=== PATIENT | female | born 1980 | race Caucasian/White ===

== ENCOUNTER → 2017-10-25 | Outpatient (REF) | payer OTHER | LOC: M SFHCLERA 19:02 | DX: Z20.818 Contact with and (suspected) exposure to other bacterial communicable diseases (principal) ==

== ENCOUNTER 2018-06-03 20:41 | Emergency (ER) | payer OTHER ==
[2018-06-03] MEDS: IBUPROFEN 600 MG TAB PO (21:12)
== END 2018-06-03 21:13 | disposition home or self-care (01) ==
LOC: M ED 20:41
DX: H92.01 Otalgia, right ear (principal); T70.29XA Other effects of high altitude, initial encounter; X58.XXXA Exposure to other specified factors, initial encounter; Y92.89 Other specified places as the place of occurrence of the external cause
CPT/HCPCS: 99282

== ENCOUNTER → 2018-11-03 | Outpatient (REF) | payer OTHER ==
[~2018-11-03] MED LIST: IBUP-1022 PO
== END ==
LOC: M SFHCLERA 17:49
PROVIDERS: ATTEND Physician Assistant
DX: R50.9 Fever, unspecified (principal)

== ENCOUNTER → 2018-12-27 | Outpatient (CLI) | payer OTHER ==
--- NOTE | 2018-12-27 18:04 | REP ---
PA and lateral chest: There are no comparisons. The lung fierro are clear. The cardiac size is normal. The nicole, mediastinum, and skeletal structures are unremarkable. Impression: Negative PA and lateral chest. Electronically Signed by Shawn Hall MD 12/27/2018 05:55 P
== END ==
LOC: M LRY 17:00
PROVIDERS: ATTEND Physician Assistant
DX: R05 Cough (principal)

== ENCOUNTER 2019-01-03 13:26 | Emergency (ER) | payer OTHER ==
[~2019-01-03] VITALS: Ht 160 cm; Wt 87.2 kg
[2019-01-03 13:26] VITALS: BP 134/81
[2019-01-03] MEDS ORDERED: ALBU17IN2 INH (14:59)
[2019-01-03] MEDS ORDERED: ZITH500T PO (14:59)
[2019-01-03] MEDS ORDERED: AZITHROMYCIN 250 MG TAB PO ONE (15:00)
[2019-01-03] MEDS ORDERED: ROBI1LIQ9 PO (15:01)
--- NOTE | 2019-01-03 15:12 | REP ---
Chest two views HISTORY: Cough Comparison: 12/27/2018 The lungs are clear. The heart is normal in size. The pulmonary vasculature is normal in appearance. The bony structure is intact. IMPRESSION: No acute disease. Electronically Signed by Douglas Perez MD 01/03/2019 03:04 P
== END 2019-01-03 15:34 | disposition home or self-care (01) ==
LOC: M ED 13:26
DX: J20.9 Acute bronchitis, unspecified (principal); J30.81 Allergic rhinitis due to animal (cat) (dog) hair and dander

== ENCOUNTER 2019-10-25 20:29 | Emergency (ER) | payer OTHER, SELFPAY ==
[~2019-10-25] VITALS: Ht 160 cm; Wt 72.7 kg
[~2019-10-25 20:29] MED LIST changes: +PROV108A INH; +ROBI1LIQ9 PO; +ZITH500T PO
[2019-10-25 20:30] VITALS: BP 133/75
== END 2019-10-25 20:56 | disposition left against medical advice (07) ==
LOC: M ED 20:29
DX: Z53.21 Procedure and treatment not carried out due to patient leaving prior to being seen by health care provider (principal)

== ENCOUNTER 2020-07-23 11:09 | Emergency (ER) | payer OTHER, SELFPAY ==
[~2020-07-23] VITALS: Ht 157.5 cm; Wt 84.6 kg
[2020-07-23] MEDS ORDERED: ACET-907 PO (11:15)
[2020-07-23 12:40] VITALS: BP 121/75
== END 2020-07-23 12:41 | disposition home or self-care (01) ==
LOC: M ED 11:09
DX: J06.9 Acute upper respiratory infection, unspecified (principal); B34.9 Viral infection, unspecified; H92.03 Otalgia, bilateral; R09.81 Nasal congestion

== ENCOUNTER 2020-08-22 01:30 | Emergency (ER) | payer OTHER ==
[~2020-08-22] VITALS: Ht 162.6 cm; Wt 84.9 kg
[2020-08-22 01:30] VITALS: BP 143/95
[~2020-08-22 01:30] MED LIST changes: +ACET-907 PO
== END 2020-08-22 02:12 | disposition home or self-care (01) ==
LOC: M ED 01:30
DX: S00.83XA Contusion of other part of head, initial encounter (principal); W19.XXXA Unspecified fall, initial encounter; Y92.89 Other specified places as the place of occurrence of the external cause; Y93.9 Activity, unspecified; Y99.0 Civilian activity done for income or pay

== ENCOUNTER 2023-02-26 19:18 | Emergency (ER) | payer OTHER ==
[~2023-02-26] VITALS: Ht 157.5 cm; Wt 86.6 kg
[~2023-02-26 19:18] MED LIST changes: +ALBU6.7H6 INH; -PROV108A INH
[2023-02-26 19:19] VITALS: BP 165/95; TEMP 98; O2SAT 98
[2023-02-26] MEDS ORDERED: NAPR-837 PO (21:09)
[2023-02-26] MEDS ORDERED: KETOROLAC 60MG 2ML VIAL IM ONE (21:10)
== END 2023-02-26 21:48 | disposition home or self-care (01) ==
LOC: M ED 19:18
DX: M17.12 Unilateral primary osteoarthritis, left knee (principal); E66.9 Obesity, unspecified; J30.81 Allergic rhinitis due to animal (cat) (dog) hair and dander
CPT/HCPCS: 73564; 96372; 99283; J1885

== ENCOUNTER → 2023-03-31 | Outpatient (CLI) | payer OTHER ==
[~2023-03-31] MED LIST changes: +NAPR-837 PO
== END ==
LOC: M SOG 13:43
PROVIDERS: ATTEND Student in an Organized Health Care Education/Training Program
DX: M17.12 Unilateral primary osteoarthritis, left knee (principal); M25.562 Pain in left knee

== ENCOUNTER → 2023-07-09 | Outpatient (CLI) | payer OTHER ==
[2023-07-09 09:10] LABS: HEMATOCRIT 37.1 % (36.0-47.0); HEMOGLOBIN 12.8 g/dl (12.0-15.5); MEAN CORPUSCULAR HEMOGLOBIN 31.3 pg (27.0-33.0); MEAN CORPUSCULAR HGB CONC 34.5 g/dl (32.0-36.5); MEAN CORPUSCULAR VOLUME 90.7 fl (80.0-96.0); PLATELET COUNT, AUTOMATED 341 10^3/uL (150-450); RED BLOOD COUNT 4.09 10^6/uL (4.00-5.40); WHITE BLOOD COUNT 8.5 10^3/uL (4.0-10.0)
[2023-07-12 16:03] LABS: AST/SGOT 13 IU/L (0-40); BLOOD UREA NITROGEN 11 MG/DL (8-27); CARBON DIOXIDE LEVEL 22 mmol/L (20-29); CHLORIDE LEVEL 107 mmol/L (96-106); CREATININE FOR GFR 0.63 MG/DL (0.57-1.00); GLOMERULAR FILTRATION RATE > 60.0 (>59); POTASSIUM SERUM 4.1 mmol/L (3.5-5.2); SODIUM LEVEL 141 mmol/L (134-144)
[2023-07-12 16:04] LABS: ALBUMIN 3.8 G/DL (3.9-4.9); ALKALINE PHOSPHATASE 92 IU/L (44-121); ALT/SGPT 14 IU/L (0-32); BILIRUBIN,TOTAL 0.4 MG/DL (0.0-1.2); CHOLESTEROL LEVEL 190 MG/DL (100-199); CHOLESTEROL RISK RATIO 3.584 (<5); HDL CHOLESTEROL 53 MG/DL (>39); LDL CHOLESTEROL 121.4 MG/DL (<100); NON-HDL-C 137 MG/DL; TOTAL 25(OH) VITAMIN D 15.4 NG/ML (30-100); TOTAL PROTEIN 6.4 G/DL (6.0-8.5); TRIGLYCERIDES LEVEL 78 MG/DL (0-149)
[2023-07-12 16:05] LABS: GLUCOSE, FASTING 96 MG/DL (70-99)
== END ==
LOC: M LAB 08:11
PROVIDERS: ATTEND Nurse Practitioner Family
DX: Z13.220 Encounter for screening for lipoid disorders (principal); E66.9 Obesity, unspecified

== ENCOUNTER 2023-07-18 02:26 | Emergency (ER) | payer OTHER ==
[~2023-07-18] VITALS: Ht 160 cm; Wt 84.5 kg
[2023-07-18] MEDS ORDERED: FLON1SPR NARES (06:39)
[2023-07-18] MEDS ORDERED: BENZ200C70 PO (06:39)
[2023-07-18 06:55] VITALS: BP 124/88; TEMP 97.8; O2SAT 100
== END 2023-07-18 07:05 | disposition home or self-care (01) ==
LOC: M ED 02:26
DX: J06.9 Acute upper respiratory infection, unspecified (principal); Z91.048 Other nonmedicinal substance allergy status; Z79.1 Long term (current) use of non-steroidal anti-inflammatories (NSAID); Z79.811 Long term (current) use of aromatase inhibitors; Z79.899 Other long term (current) drug therapy

== ENCOUNTER 2023-07-22 16:40 | Emergency (ER) | payer OTHER ==
[~2023-07-22] VITALS: Ht 157.5 cm; Wt 85.7 kg
[~2023-07-22 16:40] MED LIST changes: +BENZ200C70 PO; +FLON1SPR NARES
[2023-07-22] MEDS ORDERED: ALBU8.5H (16:59)
[2023-07-22] MEDS ORDERED: INDO50CA91 PO (20:35)
[2023-07-22] MEDS ORDERED: INDOMETHACIN 25 MG CAP PO ONE (20:35)
[2023-07-22 20:51] VITALS: BP 140/63; TEMP 97.8; O2SAT 98
== END 2023-07-22 20:53 | disposition home or self-care (01) ==
LOC: M ED 16:40
DX: M25.461 Effusion, right knee (principal); M17.11 Unilateral primary osteoarthritis, right knee; Z91.048 Other nonmedicinal substance allergy status; Z79.52 Long term (current) use of systemic steroids; Z79.1 Long term (current) use of non-steroidal anti-inflammatories (NSAID); Z79.899 Other long term (current) drug therapy

== ENCOUNTER → 2023-08-16 | Outpatient (CLI) | payer OTHER ==
[~2023-08-16] MED LIST changes: +ALBU8.5H; +INDO50CA91 PO
== END ==
LOC: M SOG 07:58
PROVIDERS: ATTEND Student in an Organized Health Care Education/Training Program
DX: M25.561 Pain in right knee (principal); M17.11 Unilateral primary osteoarthritis, right knee

== ENCOUNTER → 2023-08-19 | Outpatient (REF) | payer OTHER ==
[2023-08-19 19:30] LABS: FREE T4 1.06 NG/DL (0.89-1.76)
[2023-08-19 19:35] LABS: THYROID PEROXIDASE ANTIBODY > 1300.0 U/ML (<60.0)
== END ==
LOC: M LAB REF 16:48
PROVIDERS: ATTEND Nurse Practitioner Family
DX: R94.6 Abnormal results of thyroid function studies (principal)

== ENCOUNTER → 2023-09-05 | Outpatient (REF) | payer OTHER | LOC: M LAB REF 16:38 | PROVIDERS: ATTEND Nurse Practitioner Family | DX: Z12.4 Encounter for screening for malignant neoplasm of cervix (principal); E06.3 Autoimmune thyroiditis ==

== ENCOUNTER → 2023-09-26 | Outpatient (CLI) | payer OTHER | LOC: M WHC 15:18 | PROVIDERS: ATTEND Nurse Practitioner Family | DX: Z12.31 Encounter for screening mammogram for malignant neoplasm of breast (principal); R92.323 Mammographic fibroglandular density, bilateral breasts ==

== ENCOUNTER → 2023-10-17 | Outpatient (REF) | payer OTHER | LOC: M LAB REF 17:56 | PROVIDERS: ATTEND Nurse Practitioner Family | DX: E06.3 Autoimmune thyroiditis (principal) ==

== ENCOUNTER → 2023-11-04 | Outpatient (REF) | payer OTHER | LOC: M LAB REF 14:58 | PROVIDERS: ATTEND Surgery | DX: D17.30 Benign lipomatous neoplasm of skin and subcutaneous tissue of unspecified sites (principal) ==

== ENCOUNTER → 2023-12-05 | Outpatient (REF) | payer OTHER | LOC: M LAB REF 17:23 | PROVIDERS: ATTEND Physician Assistant | DX: E03.8 Other specified hypothyroidism (principal) ==

== ENCOUNTER → 2023-12-23 | Outpatient (CLI) | payer OTHER | LOC: M PLARAD 11:13 | PROVIDERS: ATTEND Student in an Organized Health Care Education/Training Program | DX: S83.211A Bucket-handle tear of medial meniscus, current injury, right knee, initial encounter (principal); M17.0 Bilateral primary osteoarthritis of knee; M71.21 Synovial cyst of popliteal space [Baker], right knee; M25.461 Effusion, right knee; Y93.9 Activity, unspecified; Y92.9 Unspecified place or not applicable ==

== ENCOUNTER 2024-02-27 06:49 | Day surgery (SDC) | payer OTHER ==
[~2024-02-27] VITALS: Ht 157.5 cm; Wt 82.3 kg
[~2024-02-27 06:49] MED LIST changes: -ALBU8.5H; +ALBU8.5H INH; +CETI10CH PO; +ERGO500029 PO; +SYNT50TA PO
[2024-02-27] MEDS ORDERED: LR 1,000 ML IV SCH (06:55)
[2024-02-27] MEDS ORDERED: propofoL 200 MG/20 ML VIAL As Ordered ONE (08:11)
[2024-02-27] MEDS ORDERED: ONDANSETRON 4MG 2ML VIAL As Ordered ONE (08:11)
[2024-02-27] MEDS ORDERED: LIDOCAINE 2% 100MG/5ML SDV (FOR ANES.) As Ordered ONE (08:11)
[2024-02-27] MEDS ORDERED: fentaNYL 100 MCG/2 ML INJECTION As Ordered ONE (08:15)
[2024-02-27] MEDS ORDERED: MIDAZOLAM INJ 2MG/2ML VIAL As Ordered ONE (08:15)
[2024-02-27] MEDS: ceFAZolin 2 GM/D5W 50 ML IV BAG As Ordered ONE (09:53)
[2024-02-27] MEDS ORDERED: ACETAMINOPHEN 1000MG 100ML IV BAG As Ordered ONE (09:59)
[2024-02-27] MEDS: ROPIvacaine 0.5% 30ML VIAL As Ordered ONE (10:36)
[2024-02-27] MEDS: EPINEPHrine 1MG/ML INJ 30ML MD-VIAL As Ordered ONE (10:52)
[2024-02-27] MEDS: LIDOCAINE 1% SDV 30ML VIAL As Ordered ONE (10:59)
[2024-02-27] MEDS ORDERED: ONDANSETRON 4MG 2ML VIAL IV PRN (11:00)
[2024-02-27] MEDS ORDERED: fentaNYL 100 MCG/2 ML INJECTION IV PRN (11:00)
[2024-02-27] MEDS ORDERED: OXYC1TAB23 PO (11:25)
[2024-02-27 11:50] VITALS: BP 141/72; TEMP 97.2; O2SAT 97
== END 2024-02-27 12:20 | disposition home or self-care (01) ==
LOC: M SDC 06:49
PROVIDERS: ATTEND Student in an Organized Health Care Education/Training Program
DX: S83.231A Complex tear of medial meniscus, current injury, right knee, initial encounter (principal); M67.51 Plica syndrome, right knee; E03.9 Hypothyroidism, unspecified; J45.909 Unspecified asthma, uncomplicated; Z79.890 Hormone replacement therapy; Z79.899 Other long term (current) drug therapy; Z91.048 Other nonmedicinal substance allergy status
CPT/HCPCS: 29875; 29877; 29881; 81025; J0131; J0171; J0665; J0690; J1100; J2250; J2405; J3010

== ENCOUNTER → 2024-03-13 | Outpatient (REF) | payer OTHER ==
[~2024-03-13] MED LIST changes: +OXYC1TAB23 PO
== END ==
LOC: M LAB REF 16:44
PROVIDERS: ATTEND Physician Assistant
DX: E03.8 Other specified hypothyroidism (principal)

== ENCOUNTER → 2024-04-20 | Outpatient (REF) | payer OTHER | LOC: M LAB REF 16:45 | PROVIDERS: ATTEND Nurse Practitioner Family | DX: E03.8 Other specified hypothyroidism (principal) ==

== ENCOUNTER → 2024-06-26 | Outpatient (REF) | payer OTHER, MEDICAID | LOC: M LAB REF 16:12 | PROVIDERS: ATTEND Physician Assistant | DX: E03.8 Other specified hypothyroidism (principal) ==

== ENCOUNTER 2024-07-07 17:38 | Emergency (ER) | payer OTHER, MEDICAID ==
[~2024-07-07] VITALS: Ht 157.5 cm; Wt 80.8 kg
[2024-07-07] MEDS: IBUPROFEN 600MG TAB PO ONE (20:03)
[2024-07-07 20:09] VITALS: BP 160/84; TEMP 98.1; O2SAT 99
== END 2024-07-07 20:09 | disposition home or self-care (01) ==
LOC: M ED 17:38
DX: H65.03 Acute serous otitis media, bilateral (principal); E03.9 Hypothyroidism, unspecified; J45.909 Unspecified asthma, uncomplicated; E55.9 Vitamin D deficiency, unspecified; Z79.899 Other long term (current) drug therapy

== ENCOUNTER → 2024-09-20 | Outpatient (REF) | payer OTHER, MEDICAID | LOC: M LAB REF 16:28 | PROVIDERS: ATTEND Physician Assistant | DX: E03.8 Other specified hypothyroidism (principal) ==

== ENCOUNTER → 2024-12-14 | Outpatient (REF) | payer OTHER, MEDICAID | LOC: M LAB REF 12:28 | PROVIDERS: ATTEND Physician Assistant | DX: E03.8 Other specified hypothyroidism (principal) ==

== ENCOUNTER → 2025-03-20 | Outpatient (CLI) | payer MEDICAID ==
[2025-03-22 14:13] LABS: HPV APTIMA Detected (Not Detected)
== END ==
LOC: M RAD 12:07
PROVIDERS: ATTEND Nurse Practitioner Family
DX: Z12.4 Encounter for screening for malignant neoplasm of cervix (principal); M79.671 Pain in right foot

== ENCOUNTER → 2025-04-26 | Outpatient (REF) | payer MEDICAID | LOC: M LAB REF 17:07 | PROVIDERS: ATTEND Nurse Practitioner Family | DX: E03.8 Other specified hypothyroidism (principal) ==

== ENCOUNTER → 2025-05-13 | Outpatient (CLI) | payer MEDICAID ==
[~2025-05-13] MED LIST changes: -IBUP-1022 PO; +IBUP600T42 PO
== END ==
LOC: M SOG 14:30
PROVIDERS: ATTEND Physician Assistant
DX: M25.571 Pain in right ankle and joints of right foot (principal)

== ENCOUNTER 2025-08-05 12:06 | Outpatient (RCR) | payer MEDICAID, OTHER | END 2025-08-18 | LOC: M PT 12:06 | PROVIDERS: ATTEND Physician Assistant | DX: M25.571 Pain in right ankle and joints of right foot (principal) ==

== ENCOUNTER 2025-09-09 09:33 | Outpatient (RCR) | payer OTHER | END 2025-09-18 | LOC: M PT 09:33 | PROVIDERS: ATTEND Physician Assistant | DX: M25.571 Pain in right ankle and joints of right foot (principal) ==